=== PATIENT | male | born 1965 | race Caucasian/White ===

== ENCOUNTER 2017-03-27 12:02 | Day surgery (SDC) | payer BC ==
[2017-03-20 12:04] VITALS: BMI 30.7
[2017-03-27] MEDS ORDERED: MIDAZOLAM HCL 2 MG/2 ML SINGLE DOSE VIAL ONE ×2 (13:00→13:35)
[2017-03-27] MEDS ORDERED: ROPIVACAINE HCL 0.5% 30ML VIAL ONE (13:01)
[2017-03-27] MEDS ORDERED: EPINEPHrine/PF 1 MG/1 ML (1:1,000) AMPULE ONE (13:19)
[2017-03-27] MEDS ORDERED: LIDOCAINE 1% P/F 10 MG/ML VIAL ONE (13:19)
[2017-03-27] MEDS ORDERED: PROPOFOL 20 ML ONE ×5 (13:50→14:42)
[2017-03-27] MEDS ORDERED: oxyCODONE HCL 5 MG TABLET PO PRN ×2 (14:10)
[2017-03-27] MEDS ORDERED: ONDANSETRON 4 MG/2 ML VIAL IVPUSH PRN (14:10)
[2017-03-27] MEDS ORDERED: GUM MASTIC/STORAX/MSAL/ALCOHOL 1 DRP DROPSBTL MC ONE (14:41)
[2017-03-27] MEDS ORDERED: ONDANSETRON 4 MG/2 ML VIAL ONE (15:10)
[2017-03-27] MEDS ORDERED: DEXAMETHASONE SOD PHOSPHATE 4 MG/1 ML VIAL ONE ×2 (15:10→15:18)
[2017-03-27] MEDS ORDERED: DEXAMETHASONE SOD PHOSPHATE 20 MG/5 ML VIAL IVPB ONE (15:11)
[2017-03-27] MEDS: HYDROmorphone HCL CARPU-JECT 1 MG/1 ML DISP.SYRIN IVPUSH PRN ×3 (15:14→15:39)
[2017-03-27] MEDS ORDERED: HYDROmorphone HCL CARPU-JECT 1 MG/1 ML DISP.SYRIN IVPUSH PRN (15:38)
[2017-03-27] MEDS ORDERED: HYDROmorphone HCL CARPU-JECT 1 MG/1 ML DISP.SYRIN ONE (15:40)
[2017-03-27] MEDS ORDERED: oxyCODONE HCL 5 MG TABLET ONE (16:27)
[2017-03-27 16:37] VITALS: TEMP 97.9
[2017-03-27 17:05] VITALS: BP 154/90; PULSE 64
--- NOTE | 2017-03-27 21:45 | OP ---
DATE OF OPERATION: 03/27/2017 PREOPERATIVE DIAGNOSIS: Right comminuted intraarticular displaced distal radius fracture. POSTOPERATIVE DIAGNOSIS: Right comminuted intraarticular displaced distal radius fracture. OPERATIVE PROCEDURE: 1. Open reduction of right comminuted intraarticular displaced distal radius fracture with internal fixation of 3 or more fragments. 2. Right brachioradialis tenotomy. SURGEON: Derrek Summers MD BLOG WRITER: Gary Cortes PA-C, [facility] ANESTHESIA: Regional. COMPLICATIONS: None. ESTIMATED BLOOD LOSS: Minimal. INDICATIONS FOR PROCEDURE: The patient is a 51-year-old male with the above findings indicated for operative treatment. The risks, benefits, and alternatives were discussed with the patient at length. Proper informed consent was obtained. DESCRIPTION OF PROCEDURE: After proper identification of the patient and the correct operative site, the patient was brought to the operating room and placed on the operating room table. All bony prominences were well padded. Sedation was given by the anesthesiologist along with regional anesthesia, which was adequate for the procedure. Intravenous antibiotics were given. Timeout procedure was performed. Right upper extremity was prepped and draped in the usual sterile fashion. A well-padded tourniquet was placed over the sterile prep. Esmarch bandage used to exsanguinate the right upper extremity. Tourniquet was inflated to 250 mmHg. A longitudinal incision was made over the flexor carpi radialis tendon. Incision was carried sharply through the skin with blunt and sharp dissection through the subcutaneous tissues. Flexor carpi radialis tendon along with the contents of the carpal canal were bluntly and sharply retracted in an ulnarward direction for the remainder of the procedure. Pronator quadratus was divided longitudinally and elevated off of the distal radius. A highly comminuted intraarticular fracture was noted. A brachioradialis tenotomy performed in the subperiosteal fashion was necessary to free the radial styloid fragment. The fracture fragments were carefully reduced and held tentatively with K-wires. An Acumed Acu-Loc 2 distal radius plate was secured volarly over the distal radius with proximal nonlocking screws and distal locking screws. This provided secure stable fixation of the fracture. This was confirmed in multiple radiographic planes as well as palpably and visually. Distal radial ulnar joint was found to be stable. Scapholunate interval was found to be stable. Wound was irrigated with saline. Pronator quadratus was repaired. Skin was repaired in layers using 4-0 Vicryl and 4-0 Monocryl sutures. Steri-Strips, sterile dressing, and a wrist splint were placed. Patient was reversed from anesthesia and brought to the recovery room in stable condition. He tolerated the procedure well. Gary Cortes, the assistant cook was available throughout the procedure. The procedure could not have been performed without the skilled operative assistant cook. Roger ARROYO/[id number]
== END 2017-03-27 17:05 | disposition home or self-care (01) ==
LOC: FASU 12:02
PROVIDERS: ATTEND Orthopaedic Surgery Hand Surgery
PROC: 0LN50ZZ Release Right Lower Arm and Wrist Tendon, Open Approach (ICD-10-PCS; 2017-03-27)
PROC: 0PSH04Z Reposition Right Radius with Internal Fixation Device, Open Approach (ICD-10-PCS; principal; 2017-03-27 13:59)
DX: S52.531A Colles' fracture of right radius, initial encounter for closed fracture (principal); X58.XXXA Exposure to other specified factors, initial encounter; Y93.9 Activity, unspecified; Y92.9 Unspecified place or not applicable
CPT/HCPCS: 73110-TC-RT; 94760